=== PATIENT | male | born 1955 | race Caucasian/White ===

== ENCOUNTER 2021-02-10 15:04 | Day surgery (SDCO) | payer OTHER ==
[~2021-02-10] VITALS: Ht 172.7 cm; Wt 88.0 kg
[2021-02-10 16:09] LABS: BASOPHIL 0.8 % (0-2); EOSINOPHIL 4.2 % (0-5); HCT 20.2 % (42.0-52.0); LYMPHOCYTE 25.7 % (15-48); MCH 19.7 pg (25.0-31.0); MCHC 28.2 g/dL (32.0-36.0); MCV 69.7 fL (78.0-100.0); MONOCYTE 10.4 % (0-12); MPV 10.4 fL (6.0-9.5); NEUTROPHIL 58.7 % (41-80); NRBC 0; PLT 273 K/uL (150-400); RDW 16.3 % (11.5-14.0)
[2021-02-10 16:12] LABS: HGB 5.7 g/dl (13.2-18.0)
[2021-02-10 16:18] LABS: IRON % SATURATION 1.7 %SAT (20-50)
[2021-02-10 16:26] LABS: ALBUMIN 3.6 g/dL (3.4-5.0); BILIRUBIN - TOTAL 0.3 mg/dL (0.2-1.0); BUN/CREAT RATIO (CALC) 9.5 RATIO; CREATININE 0.95 mg/dL (0.67-1.17); GLOBULIN (CALCULATION) 3.7 g/dL; MAGNESIUM 2.3 mg/dL (1.8-2.4); POTASSIUM 3.9 mmol/L (3.5-5.1); TOTAL PROTEIN 7.3 g/dL (6.4-8.2)
[2021-02-10 16:51] LABS: INR 1.04 (0.9-1.2); PROTHROMBIN TIME 12.9 SECONDS (11.4-13.6); PTT 26.4 SECONDS (22.2-34.7)
[2021-02-10 17:46] LABS: BILIRUBIN NEGATIVE (NEGATIVE); BLOOD NEGATIVE Ery/uL (NEGATIVE); CLARITY CLEAR (CLEAR); COLOR YELLOW (YELLOW); GLUCOSE (U) NORMAL (NORMAL); LEUKOCYTES NEGATIVE Leu/uL (NEGATIVE); NITRITE NEGATIVE (NEGATIVE); PROTEIN NEGATIVE (NEGATIVE); UROBILINOGEN 0.2 mg/dL (0.2-1.0)
--- NOTE | 2021-02-10 23:47 | NUR ---
1943 PT RECEIVED ADMIT FROM ED. PRBC COMPLETED PRIOR TO ARRIVAL TO ROOM 218. PT REFUSED TO CHANGE INTO HOSPITAL GOWN. PT REFUSED TO ALLOW FULL SKIN ASSESSMENT. PT AND SPOUSE ORIENTED TO ROOM AND CALL LIGHT.
[2021-02-11 05:50] LABS: BASOPHIL 1.1 % (0-2); EOSINOPHIL 4.8 % (0-5); HCT 25.3 % (42.0-52.0); HGB 7.4 g/dl (13.2-18.0); MCH 21.2 pg (25.0-31.0); MCHC 29.2 g/dL (32.0-36.0); MCV 72.5 fL (78.0-100.0); MONOCYTE 10.9 % (0-12); NRBC 0; PLT 250 K/uL (150-400); RBC 3.49 M/uL (4.70-6.00); RDW 17.3 % (11.5-14.0); WBC 4.6 K/uL (4.0-10.5)
[2021-02-11 06:06] LABS: BUN/CREAT RATIO (CALC) 9.9 RATIO; CREATININE 1.01 mg/dL (0.67-1.17); POTASSIUM 4.5 mmol/L (3.5-5.1)
[2021-02-11] MEDS ORDERED: PROTONIX 40MG T40 MG PO (07:39)
== END 2021-02-11 11:32 | disposition home or self-care (01) ==
LOC: FER 15:04 → FMS 18:38
PROVIDERS: Emergency Medicine; Nurse Practitioner; ADMIT Allergy & Immunology Allergy
DX: D50.9 Iron deficiency anemia, unspecified (principal); R07.9 Chest pain, unspecified; K44.9 Diaphragmatic hernia without obstruction or gangrene; K27.4 Chronic or unspecified peptic ulcer, site unspecified, with hemorrhage; K21.9 Gastro-esophageal reflux disease without esophagitis; R94.31 Abnormal electrocardiogram [ECG] [EKG]; Z20.822 Contact with and (suspected) exposure to COVID-19; K57.30 Diverticulosis of large intestine without perforation or abscess without bleeding
CPT/HCPCS: 36415; 36430; 80048; 80053; 81003; 83540; 83550; 83735; 83880; 84145; 84443; 84484; 85025; 85610; 85730; 86850; 86900; 86901; 86922; 93005; C9113; G0378; J7030; P9016; Q9967; U0002

== ENCOUNTER → 2021-03-02 | Day surgery (SDC) | payer OTHER ==
[~2021-03-02] VITALS: Ht 172.7 cm; Wt 88.0 kg
[~2021-03-02] MED LIST: PROTONIX 40MG T40 MG PO
== END | disposition home or self-care (01) ==
LOC: FAS 09:57
DX: K29.81 Duodenitis with bleeding (principal); K29.51 Unspecified chronic gastritis with bleeding; K57.31 Diverticulosis of large intestine without perforation or abscess with bleeding; D50.9 Iron deficiency anemia, unspecified; K44.9 Diaphragmatic hernia without obstruction or gangrene; Z80.0 Family history of malignant neoplasm of digestive organs; K21.9 Gastro-esophageal reflux disease without esophagitis
CPT/HCPCS: J2250; J2704; J7120